=== PATIENT | female | born 1980 | race Caucasian/White ===

== ENCOUNTER 2025-03-17 06:04 | Day surgery (SDC) | payer OTHER ==
[2025-03-15 09:10] LABS: BASO % 0.4 % (0.1-1.2); EOS # 0.08 (0.04-0.54); EOS % 1.0 % (0.7-7.0); LYMPH # 1.91 (1.18-3.74); LYMPH % 24.9 % (19.3-53.1); MEAN PLATELET VOLUME 10.20 fl (9.4-12.4); MONO # 0.52 (0.24-0.82); MONO % 6.8 % (4.7-12.5); NEUT # 5.10 (1.56-6.13); NEUT % 66.4 % (34.0-71.1); RED CELL DISTRIBUTION WIDTH 12.4 % (11.6-14.4)
[2025-03-15 09:10] LABS: URINE APPEARANCE Clear; URINE BILIRRUBIN Negative (NEGATIVE); URINE BLOOD Negative; URINE COLOR Yellow; URINE GLUCOSE Negative (NEGATIVE); URINE KETONE Negative (NEGATIVE); URINE LEUKOCYTE Negative; URINE NITRATE Negative; URINE PROTEIN Negative (NEGATIVE); URINE UROBILINOGEN 0.2 E.U./dl
[2025-03-15 09:11] LABS: URINE BACTERIA 6.8 uL (0.0-1933)
[2025-03-15 09:22] LABS: URINE CAST 0.00 uL (0.0-1.40); URINE EPITHELIAL CELLS 0.4 uL (0.0-38.8); URINE RBC 1.5 uL (0.0-20.8); URINE WBC 0.4 uL (0.0-23.2)
[2025-03-15 09:46] LABS: COVID-19 AG NEGATIVE (NEGATIVE)
[2025-03-15 09:48] LABS: INR 1.09
[2025-03-15 10:17] VITALS: BP 114/50
[2025-03-15 10:27] LABS: ALT/SGPT 118.0 U/L (12-78); AST/SGOT 33.0 U/L (15-37); BILIRUBIN TOTAL 0.45 mg/dL (0.3-1.2); BUN CREA RATIO 19.0 (7.0-25.0); CREATININE SERUM 0.68 mg/dL (0.55-1.02); GFR 93.57; GLOBULINA 3.5 G/DL (2.4-3.5); GLUCOSE FASTING 96.0 mg/dL (65-100); OSMOLALITY SERUM 283.0 MOSM/KG (275-295)
[~2025-03-17] VITALS: Ht 149.9 cm; Wt 54.4 kg
[2025-03-17] MEDS ORDERED: EPINEPHRINE HCL/PF 1 MG/ML AMPUL ONE (07:06)
[2025-03-17] MEDS ORDERED: TRANEXAMIC ACID 100MG/1ML (1000MG) AMPUL ONE (07:07)
[2025-03-17] MEDS ORDERED: POVIDONE-IODINE SCRUB 118 ML BOTT TOP ONE (07:08)
[2025-03-17] MEDS ORDERED: CEFAZOLIN SODIUM 1,000 MG VIAL ONE (07:08)
[2025-03-17] MEDS ORDERED: CLINDAMYCIN PHOSPHATE 150 MG/ML (900mg) ONE ×2 (07:43→08:07)
[2025-03-17] MEDS ORDERED: GENTAMICIN SULFATE 40 MG/ML VIAL ONE (07:52)
[2025-03-17] MEDS ORDERED: BUPIVACAINE HCL/Mpf 0.5% 10ML VIAL ONE (07:52)
[2025-03-17] MEDS ORDERED: TRANEXAMIC ACID 100MG/1ML (1000MG) AMPUL IV ONE (09:15)
[2025-03-17] MEDS ORDERED: POVIDONE-IODINE 118 ML BOTT TOP ONE (09:15)
[2025-03-17] MEDS ORDERED: NITROGLYCERIN 1 INCH OINT..GM. TD ONE (10:35)
[2025-03-17] MEDS ORDERED: SUGAMMADEX SODIUM 200 MG/2 ML VIAL IV ONE (11:00)
== END 2025-03-17 15:35 | disposition home or self-care (01) ==
LOC: CIR.AMB 06:04
PROVIDERS: ATTEND Surgery
DX: C50.212 Malignant neoplasm of upper-inner quadrant of left female breast (principal); D48.7 Neoplasm of uncertain behavior of other specified sites; R59.0 Localized enlarged lymph nodes; N65.0 Deformity of reconstructed breast